=== PATIENT | male | born 1990 | race American Indian/Alaskan Native ===

== ENCOUNTER 2017-03-25 11:13 | Inpatient (IN) | payer SELFPAY ==
[2017-03-25] MEDS ORDERED: ZOFRAN ODT PO ONE (11:38)
--- NOTE | 2017-03-25 11:40 | Emergency Department Report ---
Stated Complaint: FOOD POISONING Time Seen by Provider: 03/25/17 11:36 - HPI History of Present Illness: PT with N/V since last night - ROS Review of Systems: + abd pain + n/v + knot to abd - Exam Physical Exam: PT alert, writhing around wheelchair pt screaming at times abd soft and non tender MSE screening note: Focused history and physical exam performed. Due to findings the following was ordered: labs, med ED Disposition for MSE Condition: Stable
[2017-03-25 12:33] LABS: Hematocrit 45.5 % (35.5-45.6); Hemoglobin 14.9 gm/dl (11.8-15.2); Mean Corpuscular HGB Conc 33 % (32-34); Mean Corpuscular Hemoglobin 32 pg (28-32); Mean Corpuscular Volume 99 fl (84-94); Platelet Count 206 K/mm3 (140-440); Red Blood Count 4.61 M/mm3 (3.65-5.03); Red Cell Distribution Width 11.9 % (13.2-15.2)
[2017-03-25 12:38] LABS: White Blood Count 28.3 K/mm3 (4.5-11.0)
[2017-03-25 12:44] LABS: Alanine Aminotransferase 13 units/L (7-56); Albumin 4.5 g/dL (3.9-5); Albumin/Globulin Ratio 1.1 %; Alkaline Phosphatase 105 units/L (35-129); Anion Gap 24 mmol/L; BUN/Creatinine Ratio 9; Blood Urea Nitrogen 12 mg/dL (9-20); Calcium 9.7 mg/dL (8.4-10.2); Carbon Dioxide 23 mmol/L (22-30); Chloride 97.3 mmol/L (98-107); Glucose 167 mg/dL (75-100); Lipase 15 units/L (13-60); Potassium 3.8 mmol/L (3.6-5.0); Sodium 140 mmol/L (137-145); Total Protein 8.7 g/dL (6.3-8.2)
[2017-03-25 13:56] LABS: Basophils % (Manual) 0 % (0.0-1.8); Blastocytes % (Manual) 0 %; Eosinophils % (Manual) 0 % (0.0-4.3)
[2017-03-25 13:57] LABS: Anisocytosis 1+; Diff Status Complete; Large Platelets Few; Platelet Estimate Cons
[2017-03-25] MEDS ORDERED: MORPHINE IV ONE (14:34)
[2017-03-25] MEDS ORDERED: NACL 0.9% 1000 ML 1,000 ML IV ONE (14:34)
[2017-03-25] MEDS ORDERED: ZOFRAN IV ONE (14:34)
--- NOTE | 2017-03-25 14:34 | Emergency Department Report ---
HPI - General Chief Complaint: Abdominal Pain Time Seen by Provider: 03/25/17 11:36 - HPI HPI: This is a 27-year-old -[place] male presents to the emergency department from home, brought in by his father, with complaint of nausea, vomiting and abdominal pain since last night. They thought that the patient might be having food poisoning after eating [place] food and wings. Father says that he ate the same food and had some upset stomach and increased gas but not the same as the patient himself. He has been "vomiting all morning." Abdominal pain is mostly in the lower portion of the abdomen. He denies any other past medical history other than a "musculoskeletal disorder." He did not take anything for his symptoms prior to presentation. No recent travel or sick contacts at home. He does not have a primary care physician. ED Past Medical Hx - Past Medical History Previous Medical History?: No Additional medical history: "MUSCULOSKELETAL DISORDER" - Surgical History Past Surgical History?: No - Social History Smoking Status: Current Some Day Smoker Substance Use Type: Marijuana - Medications Home Medications: Home Medications Medication Instructions Recorded Confirmed Last Taken Type Ibuprofen [Motrin] 600 mg PO Q8H PRN #40 tablet 12/09/14 03/25/17 Unknown Rx ED Review of Systems ROS: Stated complaint: FOOD POISONING Other details as noted in HPI Comment: All other systems reviewed and negative Constitutional: denies: chills, fever Eyes: denies: eye pain, eye discharge, vision change ENT: denies: ear pain, throat pain Respiratory: denies: cough, shortness of breath, wheezing Cardiovascular: denies: chest pain, palpitations Gastrointestinal: abdominal pain, nausea, vomiting Genitourinary: denies: urgency, dysuria Musculoskeletal: denies: back pain, joint swelling, arthralgia Skin: denies: rash, lesions Neurological: denies: headache, weakness, paresthesias Physical Exam - Physical Exam Vital Signs: Vital Signs 03/25/17 11:37 Temperature 97.5 F L Pulse Rate 83 Respiratory 16 Rate Blood Pressure 128/69 O2 Sat by Pulse 98 Oximetry Physical Exam: GENERAL: The patient is well-developed well-nourished. HENT: Normocephalic. Atraumatic. Patient has moist mucous membranes. EYES: Extraocular motions are intact. Pupils equal reactive to light bilaterally. NECK: Supple. Trachea is midline. CHEST/LUNGS: Clear to auscultation. There is no respiratory distress noted. HEART/CARDIOVASCULAR: Regular. There is no tachycardia. There is no gallop rub or murmur. ABDOMEN: Abdomen is soft. There is some generalized tenderness to palpation of the abdomen. No guarding or rebound tenderness. No peritoneal signs. Patient has normal bowel sounds. There is no abdominal distention. SKIN: Skin is warm and dry. NEURO: The patient is awake, alert, and oriented. The patient is cooperative. The patient has no focal neurologic deficits. The patient has normal speech. MUSCULOSKELETAL: There is no tenderness or deformity. There is no limitation range of motion. There is no evidence of acute injury. ED Course Vital Signs 03/25/17 11:37 Temperature 97.5 F L Pulse Rate 83 Respiratory 16 Rate Blood Pressure 128/69 O2 Sat by Pulse 98 Oximetry - Consultations Consultation #1: 03/25/17 16:32 I spoke with the general surgeon on-call, Dr. Walker, who listened to the case presentation including the CT results and does not feel that this is a concern for appendicitis or any type of surgical intervention. ED Medical Decision Making - Lab Data Result diagrams: 03/25/17 11:46 03/25/17 11:46 - Radiology Data Radiology results: report reviewed CT ABDOMEN AND PELVIS WITH CONTRAST INDICATION: Abdominal pain. Evaluate for appendicitis. COMPARISON: 12/09/2014. FINDINGS: Abdomen and pelvis CT performed following intravenous administration of 100 cc of Omnipaque 300. LUNG BASES: No significant abnormality. ABDOMEN: Liver, spleen, gallbladder, pancreas, adrenals, aorta, IVC and kidneys within normal limits. Nonspecific GI tract evaluation limited, though grossly nonobstructive. Few distal small bowel loops noted to contain fluid. A definite appendix, whether normal or abnormal not clearly identified. Some fluid within normal caliber colon also noted. No ascites or size significant adenopathy. Few small retroperitoneal lymph nodes measuring up to 7 mm aortocaval, axial image 30, series 2. PELVIS: Urinary bladder and the sigmoid appear within normal limits. Questionable distal rectal wall thickening as on axial image 67, series 2, amongst others. Few small left hemipelvic phleboliths and a nonspecific 7 mm right hemipelvic calcification, axial image 57. Unremarkable bones. CONCLUSION: 1. No definite CT evidence of right lower quadrant inflammation, to the extent assessed in this patient with lack of intra-abdominal fat and current nonvisualization of the appendix on this study performed without oral contrast. Please correlate clinically and with laboratory values. 2. Questionable rectal wall thickening/proctitis versus technical related to suboptimal distention. Thank you for the opportunity to participate in this patient's care. Transcribed By: RS Dictated By: CARL SCHULER MD Electronically Authenticated By: CARL SCHULER MD Signed Date/Time: 03/25/17 4630 - Medical Decision Making 27-year-old male presents with abdominal pain, nausea and vomiting since last night. Labs show a leukocytosis of 20,000 with a left shift. CT of the abdomen and pelvis was done that does not show any signs of appendicitis or any obvious etiology of the patient's discomfort or leukocytosis. He was placed on IV antibiotics, given pain medication, nausea meds and IV fluid resuscitation. He'll be presented to the hospitalist, Dr Pantoja, for admission or further evaluation. - Differential Diagnosis Food Poisoning, Appendicitis, Diveritculitis, Gastritis, Colitis Critical Care Time: No Critical care attestation.: If time is entered above; I have spent that time in minutes in the direct care of this critically ill patient, excluding procedure time. ED Disposition Clinical Impression: Abdominal pain Qualifiers: Abdominal location: generalized Qualified Code(s): R10.84 - Generalized abdominal pain Leukocytosis Qualifiers: Leukocytosis type: unspecified Qualified Code(s): D72.829 - Elevated white blood cell count, unspecified Disposition: 09 OP ADMIT IP TO THIS HOSP Is pt being admited?: Yes Condition: Stable Referrals: PRIMARY CARE, [Primary Care Provider] - 3-5 Days Time of Disposition: 17:06
[2017-03-25] MEDS ORDERED: NACL 0.9% 1000 ML 1,000 ML ONE ×2 (14:38→23:06)
[2017-03-25] MEDS ORDERED: ZOFRAN ONE (14:38)
--- NOTE | 2017-03-25 16:09 | Cat Scan Report ---
CT ABDOMEN AND PELVIS WITH CONTRAST INDICATION: Abdominal pain. Evaluate for appendicitis. COMPARISON: 12/09/2014. FINDINGS: Abdomen and pelvis CT performed following intravenous administration of 100 cc of Omnipaque 300. LUNG BASES: No significant abnormality. ABDOMEN: Liver, spleen, gallbladder, pancreas, adrenals, aorta, IVC and kidneys within normal limits. Nonspecific GI tract evaluation limited, though grossly nonobstructive. Few distal small bowel loops noted to contain fluid. A definite appendix, whether normal or abnormal not clearly identified. Some fluid within normal caliber colon also noted. No ascites or size significant adenopathy. Few small retroperitoneal lymph nodes measuring up to 7 mm aortocaval, axial image 30, series 2. PELVIS: Urinary bladder and the sigmoid appear within normal limits. Questionable distal rectal wall thickening as on axial image 67, series 2, amongst others. Few small left hemipelvic phleboliths and a nonspecific 7 mm right hemipelvic calcification, axial image 57. Unremarkable bones. CONCLUSION: 1. No definite CT evidence of right lower quadrant inflammation, to the extent assessed in this patient with lack of intra-abdominal fat and current nonvisualization of the appendix on this study performed without oral contrast. Please correlate clinically and with laboratory values. 2. Questionable rectal wall thickening/proctitis versus technical related to suboptimal distention. Thank you for the opportunity to participate in this patient's care.
[2017-03-25] MEDS ORDERED: ZOSYN/NS 4.5GM/100ML 4.5 GM/100 ML VIAL IV ONE (16:24)
[2017-03-25] MEDS ORDERED: NACL 0.45% 2,000 ML IV SCH ×2 (17:00→21:00)
[2017-03-25 17:27] LABS: Bilirubin,Urine NEG (Negative); Blood,Urine NEG (Negative); Ketones,Urine NEG (Negative); Leukocyte Esterase,Urine NEG (Negative); Mucus,Urine FEW /HPF; Nitrite,Urine NEG (Negative); Protein,Urine <15 mg/dL mg/dL (Negative); Urobilinogen,Urine < 2.0 mg/dL (<2.0); WBC,Urine < 1.0 /HPF (0.0-6.0)
[2017-03-25] MEDS ORDERED: PROVENTIL IH PRN (20:11)
[2017-03-25] MEDS ORDERED: ZOFRAN IV PRN (20:11)
[2017-03-25] MEDS ORDERED: DULCOLAX PR PRN (20:11)
[2017-03-25] MEDS ORDERED: MILK OF MAGNESIA PO PRN (20:11)
[2017-03-25] MEDS ORDERED: NACL 0.9% 1000 ML IV ONE (20:11)
[2017-03-25] MEDS: NACL 0.45% 1000 ML 1,000 ML IV SCH ×2 (20:15→21:15)
--- NOTE | 2017-03-25 20:22 | History and Physical Report ---
History of Present Illness Chief complaint: I feel sick, and i been throwing up all day History of present illness: 27 YO Male with NO PMH, Nicotine Dependence presesents to ED for evaluation. Pt states that he has expereinced of nausea, vomiting and abdominal pain for the past 1 day with persistent symptoms during that same time. Pt acknowledges eating chilean food/chicken wings from a new restaurant prior to onset of symptoms. PT father says that he ate the same food and had some upset stomach and increased gas but not the same as the patient himself. Pt acknowledges subjective fever, abdominal pain, NVD, 10 episodes of loose and large volume stools overnight. Abdominal pain is 8/10, diffuse, constant, without alleviating factors, worse with vomiting. Pt denies blood in stool, BRBPR, syncope, trauma, or recent ill contacts. Pt seen and evaluated in ED and fount to have sepsis, with hypotension with systolic BP in the 80's, not responsive to initial fluid resuscitation. Past History Past Medical History: other (nicotine dependence) Past Surgical History: No surgical history, Other (reviewed) Social history: single, lives with family, smoking. denies: alcohol abuse, prescription drug abuse, IV drug use Family history: hypertension Medications and Allergies Allergies Allergy/AdvReac Type Severity Reaction Status Date / Time No Known Allergies Allergy Unverified 12/09/14 16:15 Home Medications Medication Instructions Recorded Confirmed Last Taken Type Ibuprofen [Motrin] 600 mg PO Q8H PRN #40 tablet 12/09/14 03/25/17 Unknown Rx Active Meds: Active Medications Acetaminophen (Tylenol) 650 mg PO Q4H PRN PRN Reason: Pain MILD(1-3)/Fever >100.5/GUZMAN Albuterol (Proventil) 2.5 mg IH Q4HRT PRN PRN Reason: Shortness Of Breath Bisacodyl (Dulcolax) 10 mg GA QDAY PRN PRN Reason: Constipation unrelieved by MOM Sodium Chloride (Nacl 0.45% 1000 Ml) 1,000 mls @ 1,000 mls/hr IV DIRECT TAWANNA Stop: 03/26/17 18:59 Last Admin: 03/25/17 20:15 Dose: 1,000 mls/hr Piperacillin Sod/Tazobactam Sod (Zosyn/Ns 4.5gm/100ml) 4.5 gm in 100 mls @ 200 mls/hr IV Q8HR TAWANNA PRN Reason: Protocol Sodium Chloride (Nacl 0.45%) 2,000 mls @ 125 mls/hr IV DIRECT TAWANNA Magnesium Hydroxide (Milk Of Magnesia) 30 ml PO Q4H PRN PRN Reason: Constipation Ondansetron HCl (Zofran) 4 mg IV Q8H PRN PRN Reason: N/V unrelieved by Reglan Sodium Chloride (Nacl 0.9% 1000 Ml) 3,900 ml 30 ml/kg (3900 ml) IV ONCE ONE Stop: 03/25/17 20:12 Vancomycin HCl (Vancomycin Pharmacy To Dose) 1 each IV PKCONSULT TAWANNA PRN Reason: Protocol Review of Systems Constitutional: weight loss, fever, no chills, no sweats, no night sweats Ears, nose, mouth and throat: no ear pain, no ear discharge, no tinnitis, no decreased hearing, no nose pain, no nasal congestion Cardiovascular: no chest pain, no orthopnea, no palpitations, no rapid/ irregular heart beat, no edema, no syncope Respiratory: no cough, no cough with sputum, no excessive sputum, no hemoptysis , no shortness of breath Gastrointestinal: abdominal pain, nausea, vomiting, diarrhea, no change in bowel habits, no hematemesis, no coffee ground emesis, no BRBPR, no melena, no hematochezia, no early satiety, no heartburn, no lactose intolerance Genitourinary Male: no hematuria, no flank pain, no discharge, no urinary frequency, no urinary hesitancy Rectal: no pain, no incontinence, no bleeding Musculoskeletal: no neck stiffness, no neck pain, no shooting arm pain, no arm numbness/tingling, no low back pain Integumentary: no rash, no pruritis, no redness, no sores, no wounds, no jaundice Neurological: no head injury, no transient paralysis, no paralysis, no weakness , no parathesias, no numbness, no tingling, no seizures Psychiatric: no anxiety, no memory loss, no change in sleep habits, no sleep disturbances, no insomnia, no hypersomnia Endocrine: no cold intolerance, no heat intolerance, no polyphagia, no excessive thirst, no polydipsia, no polyuria Hematologic/Lymphatic: no easy bruising, no easy bleeding Allergic/Immunologic: no urticaria, no allergic rhinitis, no wheezing Exam - Constitutional Vitals: Temp Pulse Resp BP Pulse Ox 99.0 F 86 17 106/63 98 03/25/17 17:33 03/25/17 17:30 03/25/17 17:30 03/25/17 17:30 03/25/17 11:37 General appearance: Present: mild distress, cachectic - EENT Eyes: Present: PERRL ENT: hearing intact, clear oral mucosa - Neck Neck: Present: supple, normal ROM - Respiratory Respiratory effort: normal Respiratory: bilateral: diminished - Cardiovascular Rhythm: other (tachycardia) Heart Sounds: Present: S1 & S2. Absent: rub, click - Extremities Extremities: pulses symmetrical, No edema Peripheral Pulses: within normal limits - Abdominal General gastrointestinal: Present: soft, tender Localized gastrointestinal: tender: diffuse, guarding: diffuse Male genitourinary: Present: normal - Rectal Rectal Exam: normal rectal tone - Integumentary Integumentary: Present: clear, dry, decreased turgor - Musculoskeletal Musculoskeletal: gait normal, strength equal bilaterally - Psychiatric Psychiatric: appropriate mood/affect, intact judgment & insight - Neurologic Neurologic: CNII-XII intact, moves all extremities Results - Labs CBC & Chem 7: 03/25/17 11:46 03/25/17 11:46 Labs: Abnormal lab results 03/25/17 03/25/17 03/25/17 Range/Units 11:46 11:46 17:11 WBC 28.3 H (4.5-11.0) K/mm3 MCV 99 H (84-94) fl RDW 11.9 L (13.2-15.2) % Seg Neuts % (Manual) 93.0 H (40.0-70.0) % Lymphocytes % (Manual) 2.0 L (13.4-35.0) % Seg Neutrophils # Man 26.3 H (1.8-7.7) K/mm3 Lymphocytes # (Manual) 0.6 L (1.2-5.4) K/mm3 Monocytes # (Manual) 1.4 H (0.0-0.8) K/mm3 Chloride 97.3 L (98-107) mmol/L Glucose 167 H (75-100) mg/dL Total Protein 8.7 H (6.3-8.2) g/dL Urine pH 8.0 H (5.0-7.0) Assessment and Plan - Patient Problems (1) Sepsis Current Visit: Yes Status: Acute Qualifiers: Sepsis type: Streptococcus group B Qualified Code(s): A40.1 - Sepsis due to streptococcus, group B Plan to address problem: IV abx, blood cultures, serial lactic acid, monitor uop q shift, IVF resuscitation, (2) Peritonitis (acute) generalized Current Visit: Yes Status: Suspected Plan to address problem: IV abx, serial abdominal exam, supportive care, serial lactic acid (3) Gastroenteritis Current Visit: Yes Status: Acute Plan to address problem: IVF resuscitation, supportive care. (4) Screening for HIV without presence of risk factors Current Visit: Yes Status: Acute Plan to address problem: Pt counseled, Pt consents to screening. (5) DVT prophylaxis Current Visit: Yes Status: Acute
[2017-03-25] MEDS ORDERED: NACL 0.45% 1000 ML 1,000 ML IV SCH (21:00)
[2017-03-25] MEDS ORDERED: VANCOMYCIN PHARMACY TO DOSE IV SCH (21:00)
[2017-03-25 21:32] LABS: HIV-1 Antigen p24 Non React (Non React); HIVR-1/2 Ab Non React (Non React)
[2017-03-25] MEDS: FLAGYL 500 MG/100 ML 500 MG/100 ML BAG IV SCH (22:30)
[2017-03-25] MEDS: ZOSYN/NS 4.5GM/100ML 4.5 GM/100 ML VIAL IV SCH (23:42)
[2017-03-26] MEDS ORDERED: NACL 0.9% 1000 ML 3,000 ML ONE (00:38)
[2017-03-26] MEDS: VANCOMYCIN 2,000 MG in NACL 0.9% 500 ML 500 ML IV SCH ×3 (00:41→21:02)
[2017-03-26] MEDS ORDERED: IMODIUM PO ONE (00:51)
[2017-03-26] MEDS: TYLENOL PO PRN ×2 (01:12→15:18)
[2017-03-26] MEDS ORDERED: ZOSYN/NS 3.375GM/50ML 3.375 GM/50 ML BAG IV ONE (05:39)
[2017-03-26] MEDS: ZOSYN/NS 4.5GM/100ML 4.5 GM/100 ML VIAL IV SCH ×3 (06:27→21:02)
[2017-03-26] MEDS ORDERED: FLAGYL 500 MG/100 ML 500 MG/100 ML BAG IV ONE (06:46)
[2017-03-26] MEDS: FLAGYL 500 MG/100 ML 500 MG/100 ML BAG IV SCH ×3 (06:58→21:03)
[2017-03-26 13:33] LABS: Basophils % (Auto) 0.2 % (0.0-1.8); Eosinophils % (Auto) 0.2 % (0.0-4.3); Mean Corpuscular HGB Conc 34 % (32-34); Mean Corpuscular Hemoglobin 34 pg (28-32); Mean Corpuscular Volume 99 fl (84-94); Platelet Count 132 K/mm3 (140-440); Red Blood Count 3.44 M/mm3 (3.65-5.03); White Blood Count 9.3 K/mm3 (4.5-11.0)
--- NOTE | 2017-03-26 14:01 | Progress Note ---
Assessment and Plan Assessment and plan: Patient is a 27-year-old man with history of tobacco dependency was accompanied by his male boyfriend/significant other Mr. Ansari (hippa consent performed) who presented to [facility] emergency Department with nausea, vomiting, diarrhea, generalized abdominal pain. CT abdomen and pelvis with IV contrast reported as no definite CT evidence of right lower quadrant inflammation, to the extent accessed in this patient with lack of intra- abdominal fat and current nonvisualization of the appendix on this study performed without oral contrast, please correlate clinically and with laboratory values. Questionable rectal wall thickening/proctitis versus technical related to suboptimal distention. Patient was found have a white blood cell count of 28.3 and respiration rate 28. HIV was negative. -Sepsis due to proctitis: IV antibiotics, IV fluid and follow cultures -Acute bacterial gastroenteritis: Treated with antibiotics and IV fluids -Hypotension most likely due to hypovolemia vs his baseline, he is thin at baseline: treat with ivf. -Tobacco dependency: Counseling on stopping -Drop HCT, most likely dilution: will repeat -DVT prophylaxis: scd for now. History Interval history: Patient was seen and examined. Follow-up on current diagnosis/nausea vomiting diarrhea abdominal pain which is improved. The vomiting has resolved. Overnight uneventful. Patient denies any chest pain, shortness breath, or severe headaches. Imaging, nursing note, chart, labs and old chart reviewed. Discussed with patient. Hospitalist Physical - Physical exam Narrative exam: GEN: WDWN, NAD, AWAKE, ALERT, ORIENTATED HEENT: NCAT, EOMI, PERRL, OP Clear NECK: supple, no adenopathy, no thyromegaly, no JVD CVS/HEART: RRR, NORMAL S1S2, NO JVD, pulses present bilaterally CHEST/LUNGS: CTA B, Symmetrical chest expansion, good air entry bilaterally GI/Abdomen: soft, nondistended, diffuse tenderness good bowel sounds, no guarding or rebound /Bladder: no suprapubic tenderness, no CVA or paraspinal tenderness EXT/Skin: no c/c/e, no obvious rash MSK: FROM x 4 Neuro: CN 2-12 grossly intact, no new focal deficits Psych: calm - Constitutional Vitals: Temp Pulse Resp BP Pulse Ox 98.6 F 85 16 96/52 99 03/26/17 10:00 03/26/17 10:00 03/26/17 10:00 03/26/17 10:00 03/26/17 10:00 General appearance: Present: cachectic. Absent: mild distress Results - Labs CBC & Chem 7: 03/26/17 12:17 03/25/17 11:46 Labs: Laboratory Last Values WBC 9.3 K/mm3 (4.5-11.0) 03/26/17 12:17 RBC 3.44 M/mm3 (3.65-5.03) L 03/26/17 12:17 Hgb 14.9 gm/dl (11.8-15.2) 03/25/17 11:46 Hct 45.5 % (35.5-45.6) 03/25/17 11:46 MCV 99 fl (84-94) H 03/26/17 12:17 MCH 34 pg (28-32) H 03/26/17 12:17 MCHC 34 % (32-34) 03/26/17 12:17 RDW 12.0 % (13.2-15.2) L 03/26/17 12:17 Plt Count 132 K/mm3 (140-440) L 03/26/17 12:17 Lymph % (Auto) 12.5 % (13.4-35.0) L 03/26/17 12:17 Treasure % (Auto) 6.7 % (0.0-7.3) 03/26/17 12:17 Eos % (Auto) 0.2 % (0.0-4.3) 03/26/17 12:17 Baso % (Auto) 0.2 % (0.0-1.8) 03/26/17 12:17 Lymph # 1.2 K/mm3 (1.2-5.4) 03/26/17 12:17 Treasure # 0.6 K/mm3 (0.0-0.8) 03/26/17 12:17 Eos # 0.0 K/mm3 (0.0-0.4) 03/26/17 12:17 Baso # 0.0 K/mm3 (0.0-0.1) 03/26/17 12:17 Add Manual Diff Complete 03/25/17 11:46 Total Counted 100 03/25/17 11:46 Seg Neutrophils % 80.4 % (40.0-70.0) H 03/26/17 12:17 Seg Neuts % (Manual) 93.0 % (40.0-70.0) H 03/25/17 11:46 Band Neutrophils % 0 % 03/25/17 11:46 Lymphocytes % (Manual) 2.0 % (13.4-35.0) L 03/25/17 11:46 Reactive Lymphs % (Man) 0 % 03/25/17 11:46 Monocytes % (Manual) 5.0 % (0.0-7.3) 03/25/17 11:46 Eosinophils % (Manual) 0 % (0.0-4.3) 03/25/17 11:46 Basophils % (Manual) 0 % (0.0-1.8) 03/25/17 11:46 Metamyelocytes % 0 % 03/25/17 11:46 Myelocytes % 0 % 03/25/17 11:46 Promyelocytes % 0 % 03/25/17 11:46 Blast Cells % 0 % 03/25/17 11:46 Nucleated RBC % Not Reportable 03/25/17 11:46 Seg Neutrophils # 7.5 K/mm3 (1.8-7.7) 03/26/17 12:17 Seg Neutrophils # Man 26.3 K/mm3 (1.8-7.7) H 03/25/17 11:46 Band Neutrophils # 0.0 K/mm3 03/25/17 11:46 Lymphocytes # (Manual) 0.6 K/mm3 (1.2-5.4) L 03/25/17 11:46 Abs React Lymphs (Man) 0.0 K/mm3 03/25/17 11:46 Monocytes # (Manual) 1.4 K/mm3 (0.0-0.8) H 03/25/17 11:46 Eosinophils # (Manual) 0.0 K/mm3 (0.0-0.4) 03/25/17 11:46 Basophils # (Manual) 0.0 K/mm3 (0.0-0.1) 03/25/17 11:46 Metamyelocytes # 0.0 K/mm3 03/25/17 11:46 Myelocytes # 0.0 K/mm3 03/25/17 11:46 Promyelocytes # 0.0 K/mm3 03/25/17 11:46 Blast Cells # 0.0 K/mm3 03/25/17 11:46 WBC Morphology Not Reportable 03/25/17 11:46 Hypersegmented Neuts Not Reportable 03/25/17 11:46 Hyposegmented Neuts Not Reportable 03/25/17 11:46 Hypogranular Neuts Not Reportable 03/25/17 11:46 Smudge Cells Not Reportable 03/25/17 11:46 Toxic Granulation Not Reportable 03/25/17 11:46 Toxic Vacuolation Not Reportable 03/25/17 11:46 Dohle Bodies Not Reportable 03/25/17 11:46 Pelger-Huet Anomaly Not Reportable 03/25/17 11:46 Genet Rods Not Reportable 03/25/17 11:46 Platelet Estimate Cons 03/25/17 11:46 Clumped Platelets Not Reportable 03/25/17 11:46 Plt Clumps, EDTA Not Reportable 03/25/17 11:46 Large Platelets Few 03/25/17 11:46 Giant Platelets Not Reportable 03/25/17 11:46 Platelet Satelliting Not Reportable 03/25/17 11:46 Plt Morphology Comment Not Reportable 03/25/17 11:46 RBC Morphology Not Reportable 03/25/17 11:46 Dimorphic RBCs Not Reportable 03/25/17 11:46 Polychromasia Not Reportable 03/25/17 11:46 Hypochromasia Not Reportable 03/25/17 11:46 Poikilocytosis Not Reportable 03/25/17 11:46 Anisocytosis 1+ 03/25/17 11:46 Microcytosis Not Reportable 03/25/17 11:46 Macrocytosis Not Reportable 03/25/17 11:46 Spherocytes Not Reportable 03/25/17 11:46 Pappenheimer Bodies Not Reportable 03/25/17 11:46 Sickle Cells Not Reportable 03/25/17 11:46 Target Cells Not Reportable 03/25/17 11:46 Tear Drop Cells Not Reportable 03/25/17 11:46 Ovalocytes Not Reportable 03/25/17 11:46 Helmet Cells Not Reportable 03/25/17 11:46 [place] Bodies Not Reportable 03/25/17 11:46 Mcguffey Rings Not Reportable 03/25/17 11:46 S[place] Cells Not Reportable 03/25/17 11:46 Bite Cells Not Reportable 03/25/17 11:46 Crenated Cell Not Reportable 03/25/17 11:46 Elliptocytes Not Reportable 03/25/17 11:46 Acanthocytes (Spur) Not Reportable 03/25/17 11:46 Rouleaux Not Reportable 03/25/17 11:46 Hemoglobin C Crystals Not Reportable 03/25/17 11:46 Schistocytes Not Reportable 03/25/17 11:46 Malaria parasites Not Reportable 03/25/17 11:46 Mauro Bodies Not Reportable 03/25/17 11:46 Hem Pathologist Commnt No 03/25/17 11:46 Sodium 140 mmol/L (137-145) 03/25/17 11:46 Potassium 3.8 mmol/L (3.6-5.0) 03/25/17 11:46 Chloride 97.3 mmol/L (98-107) L 03/25/17 11:46 Carbon Dioxide 23 mmol/L (22-30) 03/25/17 11:46 Anion Gap 24 mmol/L 03/25/17 11:46 BUN 12 mg/dL (9-20) 03/25/17 11:46 Creatinine 1.3 mg/dL (0.8-1.5) 03/25/17 11:46 Estimated GFR > 60 ml/min 03/25/17 11:46 BUN/Creatinine Ratio 9 % 03/25/17 11:46 Glucose 167 mg/dL (75-100) H 03/25/17 11:46 Lactic Acid 0.60 mmol/L (0.7-2.0) L 03/26/17 04:30 Calcium 9.7 mg/dL (8.4-10.2) 03/25/17 11:46 Total Bilirubin 0.70 mg/dL (0.1-1.2) 03/25/17 11:46 AST 25 units/L (5-40) 03/25/17 11:46 ALT 13 units/L (7-56) 03/25/17 11:46 Alkaline Phosphatase 105 units/L (35-129) 03/25/17 11:46 Total Protein 8.7 g/dL (6.3-8.2) H 03/25/17 11:46 Albumin 4.5 g/dL (3.9-5) 03/25/17 11:46 Albumin/Globulin Ratio 1.1 % 03/25/17 11:46 Lipase 15 units/L (13-60) 03/25/17 11:46 Urine Color Yellow (Yellow) 03/25/17 17:11 Urine Turbidity Clear (Clear) 03/25/17 17:11 Urine pH 8.0 (5.0-7.0) H 03/25/17 17:11 Ur Specific [place] 1.025 (1.003-1.030) 03/25/17 17:11 Urine Protein <15 mg/dl mg/dL (Negative) 03/25/17 17:11 Urine Glucose (UA) Neg mg/dL (Negative) 03/25/17 17:11 Urine Ketones Neg mg/dL (Negative) 03/25/17 17:11 Urine Blood Neg (Negative) 03/25/17 17:11 Urine Nitrite Neg (Negative) 03/25/17 17:11 Urine Bilirubin Neg (Negative) 03/25/17 17:11 Urine Ictotest Not Reportable 03/25/17 17:11 Urine Urobilinogen < 2.0 mg/dL (<2.0) 03/25/17 17:11 Ur Leukocyte Esterase Neg (Negative) 03/25/17 17:11 Urine WBC (Auto) < 1.0 /HPF (0.0-6.0) 03/25/17 17:11 Urine RBC (Auto) 2.0 /HPF (0.0-6.0) 03/25/17 17:11 U Epithel Cells (Auto) < 1.0 /HPF (0-13.0) 03/25/17 17:11 Urine Mucus Few /HPF 03/25/17 17:11 HIV 1&2 Antibody Rapid Non react (Non React) 03/25/17 20:51 HIV P24 Antigen Non react (Non React) 03/25/17 20:51 Blood Type B POSITIVE 03/25/17 20:51 Antibody Screen TNR 03/25/17 20:51 SHIREEN Antibody Screen Negative 03/25/17 20:51
[2017-03-26 14:02] LABS: Hemoglobin 11.6 gm/dl (11.8-15.2)
[2017-03-27] MEDS ORDERED: IMODIUM PO ONE (01:05)
[2017-03-27 05:24] LABS: Hematocrit 32.5 % (35.5-45.6); Hemoglobin 11.2 gm/dl (11.8-15.2); Mean Corpuscular HGB Conc 35 % (32-34); Mean Corpuscular Hemoglobin 34 pg (28-32); Mean Corpuscular Volume 98 fl (84-94); Platelet Count 131 K/mm3 (140-440); Red Blood Count 3.32 M/mm3 (3.65-5.03); Red Cell Distribution Width 11.8 % (13.2-15.2); White Blood Count 7.5 K/mm3 (4.5-11.0)
[2017-03-27 05:41] LABS: Anion Gap 14 mmol/L; BUN/Creatinine Ratio 5; Blood Urea Nitrogen 5 mg/dL (9-20); Calcium 7.9 mg/dL (8.4-10.2); Carbon Dioxide 23 mmol/L (22-30); Chloride 108.8 mmol/L (98-107); Glucose 82 mg/dL (75-100); Potassium 3.6 mmol/L (3.6-5.0); Sodium 142 mmol/L (137-145)
[2017-03-27] MEDS: ZOSYN/NS 4.5GM/100ML 4.5 GM/100 ML VIAL IV SCH ×2 (06:00→14:54)
[2017-03-27] MEDS: FLAGYL 500 MG/100 ML 500 MG/100 ML BAG IV SCH ×2 (06:00→14:54)
[2017-03-27] MEDS: TYLENOL PO PRN ×2 (12:20→18:04)
--- NOTE | 2017-03-27 14:28 | Discharge Summary ---
Providers - Providers Date of Admission: 03/25/17 20:11 Date of discharge: 03/27/17 Attending physician: ASIF TROY Primary care physician: [employer]IM[employer]IST Hospitalization Condition: Stable Hospital course: Patient is a 27-year-old man with history of tobacco dependency was is accompanied by his male boyfriend/significant other Mr. Ansari (hippa consent performed) who presented to [facility] emergency Department with nausea, vomiting, diarrhea, generalized abdominal pain. CT abdomen and pelvis with IV contrast reported as no definite CT evidence of right lower quadrant inflammation, to the extent accessed in this patient with lack of intra-abdominal fat and current nonvisualization of the appendix on this study performed without oral contrast, please correlate clinically and with laboratory values. Questionable rectal wall thickening/proctitis versus technical related to suboptimal distention. Patient was found have a white blood cell count of 28.3 and respiration rate 28. HIV was negative. -Sepsis due to proctitis: IV antibiotics, IV fluid and follow cultures -Acute bacterial gastroenteritis: Treated with antibiotics and IV fluids -Hypotension most likely due to hypovolemia vs his baseline, he is thin at baseline: treat with ivf. -Tobacco dependency: Counseling on stopping -Drop HCT, most likely dilution: will repeat -DVT prophylaxis: scd for now. He tolerating diet and stool are mainly formed. WBC is normal Disposition: DC-01 TO HOME OR SELFCARE Time spent for discharge: 36 minutes Core Measure Documentation - Palliative Care Palliative Care/ Comfort Measures: Not Applicable - Core Measures Any of the following diagnoses?: none - VTE Discharge Requirements Deep Vein Thrombosis/Pulmonary Embolism Present on Admission: No Has pt received <5 days of overlap therapy or INR<2.0: No Anticoagulant overlap therapy prescribed at discharge: No Contraindication No Overlap Therapy order at DC: Not Indicated Exam - Physical Exam Narrative exam: GEN: WDWN, NAD, AWAKE, ALERT, ORIENTATED HEENT: NCAT, EOMI, PERRL, OP Clear NECK: supple, no adenopathy, no thyromegaly, no JVD CVS/HEART: RRR, NORMAL S1S2, NO JVD, pulses present bilaterally CHEST/LUNGS: CTA B, Symmetrical chest expansion, good air entry bilaterally GI/Abdomen: soft, nondistended, diffuse tenderness good bowel sounds, no guarding or rebound /Bladder: no suprapubic tenderness, no CVA or paraspinal tenderness EXT/Skin: no c/c/e, no obvious rash MSK: FROM x 4 Neuro: CN 2-12 grossly intact, no new focal deficits Psych: calm - Constitutional Vitals: Temp Pulse Resp BP Pulse Ox 98.8 F 59 L 18 114/71 99 03/27/17 07:21 03/27/17 07:21 03/27/17 07:21 03/27/17 07:21 03/27/17 08:24 Plan Activity: other Diet: regular Follow up with: PRIMARY CARE, [Primary Care Provider] - 3-5 Days Prescriptions: Levofloxacin [Levaquin TAB] 500 mg PO QDAY #5 day Metoclopramide [Reglan ORAL LIQ] 10 mg PO Q8H PRN #5 day PRN Reason: Nausea And Vomiting metroNIDAZOLE [Flagyl] 500 mg PO Q8HR #5 day
[2017-03-27 15:07] VITALS: BP 113/80
[2017-03-28] MEDS ORDERED: VANCOMYCIN/NS 1 GM/250 ML 1 GM/250 ML BAG IV SCH (10:00)
== END 2017-03-27 19:30 | disposition home or self-care (01) | DRG 871 ==
LOC: ED 11:13 → 3A 20:11
PROVIDERS: ADMIT Internal Medicine; ATTEND Internal Medicine
DX: A41.9 Sepsis, unspecified organism (principal); K65.0 Generalized (acute) peritonitis; A04.9 Bacterial intestinal infection, unspecified; F17.210 Nicotine dependence, cigarettes, uncomplicated; F12.10 Cannabis abuse, uncomplicated; Z82.49 Family history of ischemic heart disease and other diseases of the circulatory system; K52.9 Noninfective gastroenteritis and colitis, unspecified; Z71.6 Tobacco abuse counseling
CPT/HCPCS: 36415; 74177; 80048; 80053; 81001; 82140; 83690; 85007; 85025; 85027; 86850; 86900; 86901; 87040; 87045; 87806; 99406; J2270; J2405; J2543; J3370; J7030; J7040; Q0162; Q9967

== ENCOUNTER 2017-07-26 21:24 | Emergency (ER) | payer SELFPAY ==
[2017-07-26] MEDS ORDERED: TYLENOL PO ONE (21:33)
[2017-07-26] MEDS ORDERED: TYLENOL ONE (21:35)
[2017-07-27] MEDS ORDERED: MOTRIN PO ONE (00:30)
--- NOTE | 2017-07-27 00:30 | Emergency Department Report ---
- General Chief Complaint: Upper Respiratory Infection Stated Complaint: FLU LIKE SX Time Seen by Provider: 07/27/17 00:28 Source: patient Mode of arrival: Ambulatory Limitations: No Limitations - History of Present Illness Initial Comments: 27-year-old male past medical history none presents with complaint of 2 days of bodyaches fevers chills nausea and malaise. Patient is awake alert and oriented 3. States he has had slight nonproductive cough. Patient accompanied by partner at bedside. Denies any rash. Denies any dysuria. Denies any sick contacts. States he has body aches. Also complaining of runny nose MD Complaint: fever, cough, sore throat, rhinorrhea, nasal congestion Onset/Timin -: days(s) Severity: moderate Severity scale (0 -10): 5 Quality: aching Consistency: intermittent Improves With: nothing Worsens With: nothing Associated Symptoms: chills, myalgias, rhinorrhea, nasal congestion, cough - Related Data Previous Rx's Medication Instructions Recorded Last Taken Type Acetaminophen [Acetaminophen TAB] 325 mg PO Q4H PRN #15 tablet 03/27/17 Unknown Rx Levofloxacin [Levaquin TAB] 500 mg PO QDAY #5 day 03/27/17 Unknown Rx Metoclopramide [Reglan ORAL LIQ] 10 mg PO Q8H PRN #5 day 03/27/17 Unknown Rx metroNIDAZOLE [Flagyl] 500 mg PO Q8HR #5 day 03/27/17 Unknown Rx ALBUTEROL Inhaler [ProAir HFA 2 puff IH QID PRN #1 inhalation 07/27/17 Unknown Rx Inhaler] Ibuprofen [Motrin] 600 mg PO Q8H PRN #30 tablet 07/27/17 Unknown Rx Ondansetron [Zofran Odt] 4 mg PO Q8H PRN #10 tab.rapdis 07/27/17 Unknown Rx Oseltamivir [Tamiflu] 75 mg PO BID #10 cap 07/27/17 Unknown Rx Phenylephrine/Dm/Acetaminop/GG 10 ml PO Q6H PRN #1 liquid 07/27/17 Unknown Rx [Mucinex Qojk-Swp-Vhfjlckcsu Lq] Allergies Allergy/AdvReac Type Severity Reaction Status Date / Time No Known Allergies Allergy Verified 07/26/17 21:29 ED Review of Systems ROS: Stated complaint: FLU LIKE SX Other details as noted in HPI Constitutional: chills, fever, malaise Eyes: denies: eye pain, eye discharge, vision change ENT: congestion. denies: ear pain, throat pain Respiratory: denies: cough, shortness of breath, wheezing Cardiovascular: denies: chest pain, palpitations Endocrine: no symptoms reported Gastrointestinal: denies: abdominal pain, nausea, diarrhea Genitourinary: denies: urgency, dysuria Musculoskeletal: denies: back pain, joint swelling, arthralgia Skin: denies: rash, lesions Neurological: denies: headache, weakness, paresthesias Psychiatric: denies: anxiety, depression Hematological/Lymphatic: denies: easy bleeding, easy bruising ED Past Medical Hx - Past Medical History Hx Congestive Heart Failure: No Hx Diabetes: No Hx Asthma: No Hx COPD: No Additional medical history: "MUSCULOSKELETAL DISORDER" - Surgical History Past Surgical History?: No - Social History Smoking Status: Never Smoker Substance Use Type: None - Medications Home Medications: Home Medications Medication Instructions Recorded Confirmed Last Taken Type Acetaminophen [Acetaminophen TAB] 325 mg PO Q4H PRN #15 tablet 03/27/17 Unknown Rx Levofloxacin [Levaquin TAB] 500 mg PO QDAY #5 day 03/27/17 Unknown Rx Metoclopramide [Reglan ORAL LIQ] 10 mg PO Q8H PRN #5 day 03/27/17 Unknown Rx metroNIDAZOLE [Flagyl] 500 mg PO Q8HR #5 day 03/27/17 Unknown Rx ALBUTEROL Inhaler [ProAir HFA 2 puff IH QID PRN #1 inhalation 07/27/17 Unknown Rx Inhaler] Ibuprofen [Motrin] 600 mg PO Q8H PRN #30 tablet 07/27/17 Unknown Rx Ondansetron [Zofran Odt] 4 mg PO Q8H PRN #10 tab.rapdis 07/27/17 Unknown Rx Oseltamivir [Tamiflu] 75 mg PO BID #10 cap 07/27/17 Unknown Rx Phenylephrine/Dm/Acetaminop/GG 10 ml PO Q6H PRN #1 liquid 07/27/17 Unknown Rx [Mucinex Akjl-Imc-Gfmikhxuxr Lq] ED Physical Exam - General Limitations: No Limitations General appearance: alert, in no apparent distress - Head Head exam: Present: atraumatic, normocephalic - Eye Eye exam: Present: normal appearance - ENT ENT exam: Present: mucous membranes moist - Neck Neck exam: Present: normal inspection - Respiratory Respiratory exam: Present: normal lung sounds bilaterally. Absent: respiratory distress - Cardiovascular Cardiovascular Exam: Present: regular rate, normal rhythm. Absent: systolic murmur, diastolic murmur, rubs, gallop - GI/Abdominal GI/Abdominal exam: Present: soft, normal bowel sounds - Rectal Rectal exam: Present: deferred - Extremities Exam Extremities exam: Present: normal inspection - Back Exam Back exam: Present: normal inspection - Neurological Exam Neurological exam: Present: alert, oriented X3 - Psychiatric Psychiatric exam: Present: normal affect, normal mood - Skin Skin exam: Present: warm, dry, intact, normal color. Absent: rash ED Course Vital Signs 07/26/17 21:29 Temperature 100 F H Pulse Rate 113 H Respiratory 20 Rate Blood Pressure 116/84 O2 Sat by Pulse 98 Oximetry ED Medical Decision Making - Lab Data Result diagrams: 07/27/17 00:53 07/27/17 00:53 - Medical Decision Making A/P: Flulike illness, viral syndrome 1- vital signs stable before discharge, flu swab negative 2-chest x-ray is unremarkable, vital signs stable before discharge. Patient tolerating by mouth fluid and food without difficulty 3-Motrin when necessary, Mucinex when necessarywhen necessary. I offered patient Tamiflu. Patient expressed some interest in taking it after discussion of side effects benefits and risks of taking Tamiflu. I educated patient and provided him with literature on fluid management [email or web address]_ link 4- I advised patient to follow up with primary care or to return to the ED for any inability to tolerate by mouth fluid or food persistent nausea and vomiting severe fevers and chills or fevers persistently above 100.4F despite antipyretic use, severe lethargy. Patient stated he understood my instructions. I advised patient to remain well-hydrated. Critical care attestation.: If time is entered above; I have spent that time in minutes in the direct care of this critically ill patient, excluding procedure time. ED Disposition Clinical Impression: Flu-like symptoms, Viral syndrome Disposition: - TO HOME OR SELFCARE Is pt being admited?: No Does the pt Need Aspirin: No Condition: Stable Instructions: Viral Syndrome (ED), Influenza (ED) Prescriptions: ALBUTEROL Inhaler [ProAir HFA Inhaler] 2 puff IH QID PRN #1 inhalation PRN Reason: Shortness Of Breath Ibuprofen [Motrin] 600 mg PO Q8H PRN #30 tablet PRN Reason: Pain Ondansetron [Zofran Odt] 4 mg PO Q8H PRN #10 tab.rapdis PRN Reason: Nausea Oseltamivir [Tamiflu] 75 mg PO BID #10 cap Phenylephrine/Dm/Acetaminop/GG [Mucinex Bbfp-Nmx-Ageivmerty Lq] 10 ml PO Q6H PRN #1 liquid PRN Reason: Cough Referrals: [facility] [Outside] - 3-5 Days [facility] [Outside] - 3-5 Days Forms: Accompanied Note, Work/School Release Form(ED) Time of Disposition: 02:15
[2017-07-27] MEDS ORDERED: ZOFRAN ODT PO ONE (00:39)
[2017-07-27 01:13] LABS: Basophils % (Auto) 0.5 % (0.0-1.8); Eosinophils % (Auto) 0.2 % (0.0-4.3); Hematocrit 42.5 % (35.5-45.6); Hemoglobin 14.1 gm/dl (11.8-15.2); Lymphocytes # (Auto) 0.8 K/mm3 (1.2-5.4); Lymphocytes % (Auto) 10.2 % (13.4-35.0); Mean Corpuscular HGB Conc 33 % (32-34); Mean Corpuscular Hemoglobin 34 pg (28-32); Mean Corpuscular Volume 102 fl (84-94); Monocytes % (Auto) 12.6 % (0.0-7.3); Red Blood Count 4.16 M/mm3 (3.65-5.03); Red Cell Distribution Width 12.5 % (13.2-15.2)
[2017-07-27 01:23] LABS: Platelet Count 124 K/mm3 (140-440)
[2017-07-27 01:29] LABS: BUN/Creatinine Ratio 6; Blood Urea Nitrogen 8 mg/dL (9-20); Hemolysis Index 6
--- NOTE | 2017-07-27 02:05 | XRay Report ---
FINAL REPORT EXAM: XR CHEST ROUTINE 2V HISTORY: Worsening cough, flu like symptoms. TECHNIQUE: Frontal and lateral radiographs of the chest were obtained. No prior studies are available for comparison. FINDINGS: The cardiac silhouette and mediastinum are within normal limits. The lungs are clear bilaterally, without focal infiltrate or effusion. There is no pneumothorax. There is a mild thoracic dextroscoliosis. IMPRESSION: No active disease seen in the chest.
[2017-07-27 02:30] VITALS: BP 107/67
== END 2017-07-27 02:46 | disposition home or self-care (01) ==
LOC: ED 21:24
DX: J11.1 Influenza due to unidentified influenza virus with other respiratory manifestations (principal); B34.9 Viral infection, unspecified
CPT/HCPCS: 36415; 71046; 80048; 82550; 85025; 87400; Q0162